=== PATIENT | female | born 1990 | race Caucasian/White ===

== ENCOUNTER 2021-09-03 02:59 | Inpatient (IN) | payer BC ==
[2021-09-03] MEDS ORDERED: Acetaminophen 325 MG Tab PO PRN ×2 (03:06→19:16)
[2021-09-03] MEDS ORDERED: Nalbuphine 10 MG/1 ML Vial IVPUSH PRN (03:06)
[2021-09-03] MEDS ORDERED: Calcium Carbonate 500 MG Tab.Chew PO PRN (03:06)
[2021-09-03] MEDS ORDERED: Ondansetron 4 MG/2 ML SDV IVPUSH PRN (03:06)
[2021-09-03] MEDS ORDERED: Ampicillin 2 GM in Sodium Chloride 0.9% 100 ML IV ONE (03:06)
[2021-09-03] MEDS ORDERED: Lidocaine 1% 50 ML MDV INJECT PRN (03:06)
[2021-09-03] MEDS ORDERED: Oxytocin/Lactated Ringers 10 UNIT/1,000 ML BAG IV SCH ×2 (03:15)
[2021-09-03] MEDS: Lactated Ringers 1,000 ML IV SCH ×2 (03:41→10:26)
[2021-09-03] MEDS: Ampicillin 1 GM in Sodium Chloride 0.9% 100 ML IV SCH ×4 (07:17→19:34)
[2021-09-03] MEDS ORDERED: fentaNYL 100 MCG/2 ML SDV EPIDUR PRN (09:21)
[2021-09-03] MEDS ORDERED: diphenhydrAMINE 50 MG/ML SDV IVPUSH PRN (09:21)
[2021-09-03] MEDS ORDERED: Bupivacaine/fentaNYL/NS 100 ML Bag EPIDUR PRN (09:21)
[2021-09-03] MEDS ORDERED: ePHEDrine 50 MG/ML SDV IVPUSH PRN (09:21)
[2021-09-03] MEDS ORDERED: Lidocaine 1% 10 ML MDV ONE (12:00)
[2021-09-03] MEDS ORDERED: Sodium Chloride 0.9% 10 ML SDV ONE (12:00)
[2021-09-03] MEDS ORDERED: Benzocaine/Menthol 20%-0.5% Spray 78 GM Cannister TOP PRN (19:16)
[2021-09-03] MEDS ORDERED: Docusate Sodium 100 MG Cap PO PRN (19:16)
[2021-09-03] MEDS ORDERED: Witch Hazel Medicated Pads 40/Jar TOP PRN (19:16)
[2021-09-03] MEDS ORDERED: Ibuprofen 600 MG Tab PO PRN (19:16)
[2021-09-04 08:08] VITALS: BP 131/81; PULSE 70
[2021-09-04] MEDS ORDERED: Acetaminophen 325 MG Tab PO PRN (08:34)
[2021-09-04] MEDS ORDERED: Witch Hazel Medicated Pads 40/Jar TOP PRN (08:34)
[2021-09-04] MEDS ORDERED: Ibuprofen 600 MG Tab PO PRN (08:34)
[2021-09-04] MEDS ORDERED: Docusate Sodium 100 MG Cap PO PRN (08:34)
[2021-09-04] MEDS ORDERED: Benzocaine/Menthol 20%-0.5% Spray 78 GM Cannister TOP PRN (08:34)
[2021-09-04] MEDS ORDERED: Prenatal Multivitamin with Calcium/Folic Acid/Iron Tab PO SCH (09:00)
== END 2021-09-04 16:45 | disposition home or self-care (01) | DRG 560 ==
LOC: JD.OB 02:59 → OBSVTOIN 15:53 → JD.OB 15:54
PROVIDERS: ADMIT Obstetrics & Gynecology; ATTEND Obstetrics & Gynecology
PROC: 10E0XZZ Delivery of Products of Conception, External Approach (ICD-10-PCS; principal; 2021-09-03)
PROC: 10907ZC Drainage of Amniotic Fluid, Therapeutic from Products of Conception, Via Natural or Artificial Opening (ICD-10-PCS; 2021-09-03)
PROC: 3E033VJ Introduction of Other Hormone into Peripheral Vein, Percutaneous Approach (ICD-10-PCS; 2021-09-03)
PROC: 3E0R3BZ Introduction of Anesthetic Agent into Spinal Canal, Percutaneous Approach (ICD-10-PCS; 2021-09-03)
PROC: 00HU33Z Insertion of Infusion Device into Spinal Canal, Percutaneous Approach (ICD-10-PCS; 2021-09-03)
DX: O99.824 Streptococcus B carrier state complicating childbirth (principal); O99.214 Obesity complicating childbirth; Z37.0 Single live birth; Z20.822 Contact with and (suspected) exposure to COVID-19; Z3A.39 39 weeks gestation of pregnancy
CPT/HCPCS: 36415; 51702; 59025; 59409; 85025; 86592; 86850; 86900; 86901; J0290; J2590; J3010; J7120; U0002